=== PATIENT | male | born 1960 | race Caucasian/White ===

== ENCOUNTER 2020-10-18 11:52 | Observation (INO) | payer OTHER ==
[~2020-10-18] VITALS: Ht 185.4 cm; Wt 84.4 kg
[~2020-10-18 11:52] MED LIST: CIPROFLOXACIN500 M1 PO; FLOMAX0.4 MG PO; LIPITOR10 MG PO; LOPRESSOR25 PO; NOHOMEMEDICATIONS; PAXIL10 MG; PERCOCET 5-3251 EACH PO; WELLBUTRIN 100100 MG PO
[2020-10-18 12:05] VITALS: BP 152/82
[2020-10-18] MEDS ORDERED: PERCOCET 5-3251 EACH PO (12:21)
[2020-10-18 14:19] LABS: ABSOLUTE EOSINOPHILS 0.1 thou/uL (0.0-0.7); ABSOLUTE MONOCYTES 0.6 thou/uL (0.0-1.2); ABSOLUTE NEUTROPHILS 4.5 thou/uL (1.6-8.1); BASOPHILS 0.7 %; EOSINOPHILS 1.3 %; HEMOGLOBIN 15.2 gm/dL (14.0-18.0); LYMPHOCYTES 27.8 %; MCH 31.3 pg (26.0-34.0); MCHC 33.8 g/dL (28.0-37.0); MCV 92.7 fL (80.0-100.0); MONOCYTES 7.7 %; MPV 7.3 fl. (7.2-11.1); NUCLEATED RBCS 0 /100WBC; PLATELET COUNT* 313 thou/uL (150-400); POLYS 62.5 %; RBC 4.85 mil/uL (4.50-6.00); RDW-CV 12.6 % (10.5-14.5); WBC 7.2 thou/uL (4.0-11.0)
[2020-10-18 14:26] LABS: CALCIUM 9.5 mg/dL (8.5-10.1); CREATININE 1.1 mg/dL (0.6-1.3); POTASSIUM 3.6 mmol/L (3.5-5.1)
[2020-10-18 14:31] LABS: ALBUMIN 4.2 g/dL (3.4-5.0); TOTAL BILIRUBIN 0.4 mg/dL (<0.1-1.0); TOTAL PROTEIN 7.6 g/dL (6.4-8.2)
--- NOTE | 2020-10-18 17:20 | NUR ---
ASSUMED CARE OF PATIENT AT THIS TIME. RECIEVED REPORT FROM CARLIN LATHAM FROM IR. CARLIN SET UP TPA INFUSION AND HEPARIN INFUSION THROUGH LEFT FEMORAL SITE AT BEDSIDE. PATIENT IS VERY ANXIOUS AT THIS TIME. ANXIETY MEDICATION GIVEN .
[2020-10-18 17:28] LABS: APTT 25.9 Seconds (25.0-31.3); INR 0.9; PROTIME 10.1 Seconds (9.20-11.50)
[2020-10-18 18:27] LABS: POTASSIUM 3.5 mmol/L (3.5-5.1)
[2020-10-18 19:43] LABS: HEMATOCRIT 40.7 % (42.0-52.0); HEMOGLOBIN 13.8 gm/dL (14.0-18.0); MCH 31.7 pg (26.0-34.0); MCV 93.1 fL (80.0-100.0); MPV 7.4 fl. (7.2-11.1); RBC 4.37 mil/uL (4.50-6.00); RDW-CV 12.5 % (10.5-14.5); WBC 6.2 thou/uL (4.0-11.0)
--- NOTE | 2020-10-18 19:57 | NUR ---
REPORT GIVEN TO ELLIOT LATHAM. PATIENT TRANSFERRED TO ICU BED 6.
[2020-10-18 20:00] VITALS: BP 135/91; BP 141/81
[2020-10-18 21:00] VITALS: BP 131/80
[2020-10-18 22:00] VITALS: BP 115/74
[2020-10-18 23:00] VITALS: BP 131/77
[2020-10-19] VITALS (20 sets, daily range): BP systolic 113–164; BP diastolic 64–94
[2020-10-19 02:36] LABS: CALCIUM 8.9 mg/dL (8.5-10.1); CREATININE 0.9 mg/dL (0.6-1.3); POTASSIUM 3.8 mmol/L (3.5-5.1)
[2020-10-19 02:39] LABS: PROTIME 10.4 Seconds (9.20-11.50)
[2020-10-19 06:18] LABS: ABSOLUTE EOSINOPHILS 0.1 thou/uL (0.0-0.7); ABSOLUTE LYMPHOCYTES 1.2 thou/uL (0.8-5.3); ABSOLUTE MONOCYTES 0.4 thou/uL (0.0-1.2); ABSOLUTE NEUTROPHILS 5.5 thou/uL (1.6-8.1); BASOPHILS 0.5 %; EOSINOPHILS 0.8 %; HEMATOCRIT 40.5 % (42.0-52.0); HEMOGLOBIN 13.8 gm/dL (14.0-18.0); LYMPHOCYTES 16.3 %; MCH 31.9 pg (26.0-34.0); MCHC 34.1 g/dL (28.0-37.0); MCV 93.7 fL (80.0-100.0); MPV 8.5 fl. (7.2-11.1); NUCLEATED RBCS 0 /100WBC; PLATELET COUNT* 264 thou/uL (150-400); POLYS 76.4 %; RBC 4.32 mil/uL (4.50-6.00); RDW-CV 12.5 % (10.5-14.5); WBC 7.2 thou/uL (4.0-11.0)
[2020-10-19] MEDS ORDERED: ELIQUIS5 MG PO (12:26)
[2020-10-19] MEDS ORDERED: PERCOCET 10-321 EAC1 PO (12:26)
[2020-10-19] MEDS ORDERED: XARELTO20 MG PO (12:57)
--- NOTE | 2020-10-19 19:31 | NUR ---
I ASSUMED CARE OF THE PATIENT AT 0700. SHE IS ALERT AND ORIENTED X4 AND IS UP AD CHARU. BED IS IN THE LOW LOCKED POSITION AND CALL LIGHT IS IN REACH. HOURLY ROUNDING IS COMPLETED AND PATIENT NEEDS ARE MET. PAIN IS ONLY PARTIALLY MANAGED WITH PRN MEDS. HIS IS AT THE BEDSIDE MOST OF THE DAY. HE WENT TO IR AT 0945 AND RETURNED AT 1100. PATIENT STAYED FLAT FOR ALL OF MORNING PRIOR TO GOING TO [facility] AND THEN UNTIL 1300. HIS DIET WAS ADVANCED AND HE WAS UP WITH SOME ASSISTANCE AROUND THE ROOM. BOTH SHEATH'S WERE PULLED BY IR. NEW ORDERS WERE OBTAINED TO ADDRESS PAIN MANAGMENT. IV WAS D/C'D PRIOR TO DISCHARGE. OXYGEN WAS TITRATED TO ROOM AIR. REYES WAS REMOVED AND HE WAS ABLE TO URINATE. LEFT FOOT WAS WARM AND PULSES WERE PALPATED. HE WAS DISCHARGED TO HOME AT 1900 WITH SCRIPTS. HE WAS GIVEN A 30 DAY SAMPLE CARD FOR XARELTO, BUT THE PHARMACY DIDN'T ACCEPT IT AND CHARGED HIM OVER $400. HE PLANS TO SEE A F[facility] DRUMMER IN [place] EARLY NEXT WEEK.
== END 2020-10-19 19:00 | disposition home or self-care (01) ==
LOC: M.ERS 11:52 → M.TBA-ER 17:05 → M.ICU 19:35
PROVIDERS: Family Medicine; Radiology Diagnostic Radiology; ADMIT Family Medicine; ATTEND Family Medicine
DX: I70.222 Atherosclerosis of native arteries of extremities with rest pain, left leg (principal); G57.62 Lesion of plantar nerve, left lower limb; Z79.899 Other long term (current) drug therapy; Z20.828 Contact with and (suspected) exposure to other viral communicable diseases